=== PATIENT | female | born 1985 | race Caucasian/White ===

== ENCOUNTER → 2020-07-16 | Outpatient (CLI) | payer OTHER | END | disposition home or self-care (01) | LOC: EMS 11:20 | PROVIDERS: ATTEND Internal Medicine | DX: Z20.828 Contact with and (suspected) exposure to other viral communicable diseases (principal) | CPT/HCPCS: 87426; U0003 ==

== ENCOUNTER 2022-05-26 10:19 | Emergency (ER) | payer OTHER ==
[~2022-05-26] VITALS: Ht 154.9 cm; Wt 56.8 kg
[2022-05-26 11:40] VITALS: BP 133/79
[2022-05-26 11:42] LABS: COVID AG,FIA SOURCE NASAL SWAB
== END 2022-05-26 13:30 | disposition home or self-care (01) ==
LOC: EMS 10:20
DX: U07.1 COVID-19 (principal)
CPT/HCPCS: 99283; 87426; U0003; C9803

== ENCOUNTER 2023-12-31 08:16 | Emergency (ER) | payer OTHER ==
[~2023-12-31] VITALS: Ht 154.9 cm; Wt 63.6 kg
[2023-12-31] MEDS ORDERED: birth control PO (08:23)
[2023-12-31] MEDS ORDERED: VENL25TA47 PO (08:23)
[2023-12-31] MEDS ORDERED: METO25 PO (08:23)
[2023-12-31 08:25] VITALS: TEMP 98.2
[2023-12-31 10:18] VITALS: BP 128/77; PULSE 76; RESP 16
[2023-12-31] MEDS ORDERED: CYCL-448 PO (10:47)
== END 2023-12-31 11:40 | disposition home or self-care (01) ==
LOC: EMS 08:16
DX: M25.512 Pain in left shoulder (principal); F41.9 Anxiety disorder, unspecified; I10 Essential (primary) hypertension
CPT/HCPCS: 72040; 73503; 99284